=== PATIENT | female | born 2000 | race African-American/Black ===

== ENCOUNTER 2020-01-21 11:27 | Emergency (ER) | payer BC ==
[2020-01-21 11:33] VITALS: BP 123/67; PULSE 69; TEMP 97.7; BMI 29.9
--- NOTE | 2020-01-21 11:48 | PDOC ---
History of Present Illness - General Chief Complaint: Pain Stated Complaint: NECK PAIN Time Seen by Provider: 01/21/20 11:33 History Source: Patient - History of Present Illness Initial Comments: 01/21/20 13:34 Chief complaint: Neck injury Patient is a healthy 19-year-old female who was in the shower, turned her head and felt a big crack in her neck. Patient has been unable to move her neck since this happened. She has not taken any pain medicine. Patient has no numbness, headache, dizziness. GENERAL/CONSTITUTIONAL: No fever, weakness. dizziness HEAD, EYES, EARS, NOSE AND THROAT: No change in vision. No ear pain or discharge. No sore throat. CARDIOVASCULAR: No chest pain RESPIRATORY: No shortness of breath or cough GASTROINTESTINAL: No pain, nausea, vomiting, diarrhea or constipation GENITOURINARY: No dysuria MUSCULOSKELETAL: + neck no: back pain SKIN: No rash NEUROLOGIC: No headache, vertigo, loss of consciousness, or loss of sensation. GENERAL: The patient is awake, alert, and fully oriented, in no acute distress. HEAD: Normal with no signs of trauma. EYES: Pupils equal, round and reactive to light, sclera anicteric, conjunctiva clear. ENT: pharynx: no erythema, no exudate, uvula midline NECK: Facing left, with mild posterior tenderness, right trapezius tenderness. CHEST: clear, nontender, rr ABD: soft, nontender BACK: no tenderness or signs of injury EXTREMITIES: Normal range of motion, no edema. NEUROLOGICAL: Normal speech, normal gait. Cranial nerves II through XII grossly intact, no gross focal abnormalities SKIN: Warm, Dry Past History - Past Medical History Allergies/Adverse Reactions: Allergies Allergy/AdvReac Type Severity Reaction Status Date / Time No Known Allergies Allergy Verified 01/21/20 11:32 COPD: No - Psycho Social/Smoking Cessation Hx Smoking History: Never smoked *Physical Exam - Vital Signs Last Vital Signs Temp Pulse Resp BP Pulse Ox 97.7 F 69 18 123/67 99 01/21/20 11:30 01/21/20 11:30 01/21/20 11:30 01/21/20 11:30 01/21/20 11:30 Medical Decision Making - Medical Decision Making Patient is 19-year-old female, no medical problems who turned her neck to the left this morning in the shower, heard a crack and now is having pain and inability to move her neck. Patient did not take pain medicine, will give Motrin. Patient can turn her head slightly on exam. Patient is very nervous, mother is also nervous. Likely torticollis. Given trauma will get x-ray and try to assess. X-ray may not be conclusive. Will reassess X-ray is not conclusive, patient still having difficulty moving neck, and mother is very concerned. Discussed further, pain medicine and assess meant observation versus imaging. Explained CT scan, exposure to radiation. Given trauma it is reasonable to do CT scan to rule out any subluxation or other acute injury. Mother would like to get this done. 01/21/20 14:13 CT shows no bony issue or subluxation, does show reversal of natural curvature consistent with spasm. Patient is slowly improving. Patient will continue supportive treatment. Given copy of CT scan and fully explained. Discussed issues, findings, results, applicable medications and treatments and follow-up. All these were understood and all questions were answered Discharge - Discharge Information Problems reviewed: Yes Clinical Impression/Diagnosis: Torticollis Condition: Stable Disposition: HOME - Admission No - Follow up/Referral Referrals: ON STAFF,NOT [Primary Care Provider] - - Patient Discharge Instructions Patient Printed Discharge Instructions: DI for Torticollis Additional Instructions: Motrin 600 mg every 6 hours for pain. You can add Benadryl 25 mg as needed every 4-6 hours, especially at bedtime or first thing in the morning, be aware this will make you drowsy. Return to the ER if numbness, headache, severe dizziness or other concerns Call the orthopedist this week if not resolved - Post Discharge Activity
[2020-01-21] MEDS ORDERED: IBUPROFEN 600 MG TABLET (FP) PO ONE ×2 (11:57→11:59)
[2020-01-21] MEDS ORDERED: diphenhydrAMINE HCL 25 MG CAPSULE (FP) PO ONE ×2 (12:40→12:42)
== END 2020-01-21 14:18 | disposition home or self-care (01) ==
LOC: JERFT 11:27
DX: G24.3 Spasmodic torticollis (principal)
CPT/HCPCS: 72050-TC-FY; 72125-TC; 99284-25

== ENCOUNTER 2025-01-26 10:12 | Emergency (ER) | payer BC ==
[2025-01-26 10:24] VITALS: BP 111/60; PULSE 82; RESP 16; TEMP 98.3; BMI 37.0
[2025-01-26] MEDS ORDERED: KETOROLAC TROMETHAMINE 30 MG/1 ML VIAL ONE (11:17)
[2025-01-26] MEDS ORDERED: ONDANSETRON *ODT* 4 MG TABLET ONE (11:17)
[2025-01-26] MEDS: KETOROLAC TROMETHAMINE 30 MG/1 ML VIAL IM ONE (11:23)
[2025-01-26] MEDS: ONDANSETRON *ODT* 4 MG TABLET SL ONE (11:24)
== END 2025-01-26 13:09 | disposition home or self-care (01) ==
LOC: JERFT 10:12
PROC: 3E0233Z Introduction of Anti-inflammatory into Muscle, Percutaneous Approach (ICD-10-PCS; principal; 2025-01-26)
DX: R51.9 Headache, unspecified (principal); R11.2 Nausea with vomiting, unspecified
CPT/HCPCS: 99284-25; Q0162